=== PATIENT | female | born 1955 | race African-American/Black ===

== ENCOUNTER 2017-01-12 18:02 | Emergency (ER) | payer OTHER ==
[~2017-01-12 18:02] MED LIST: ACETAMINOPHEN PO; ADVAIR 2501 DISK W/D PO; ADVAIR 5001 DISK W/D PO; ALBUTEROL MININEB NEB; ALBUTEROL17 GM INH; AZITHROMYCIN250 MG PO; BENZONATATE PO; BP MED; CLEOCIN HCL300 M1 PO; CLEOCIN PO; COLACE PO; FLEXERIL10 MG PO; FLONASE16 GM; HCTZ PO; HYCODAN60 ML 5MG/ PO; IBUPROFEN800 MG PO; KETOPROFEN PO; LORTAB 5/500 TA1 TA1 PO; LORTAB 5/500 TA1 TA2 PO; MEDROL DOSEPAK4 MG PO; MEDROL PO; MORGIDOX100 MG PO; NAPROSYN500 MG PO; PLENDIL PO; PREDNISONE PO; PREDNISONE10 MG PO; ROBITUSSIN A-C S5 ML PO; SINGULAIR PO; SPIRIVA18 MCG INH; TOPROL XL PO; TUSSIONEX PENN473 ML PO; VICODIN 5/500 T1 TAB PO; ZITHROMAX PO; [UNRECOGNIZED DRUG - OTHER]
== END 2017-01-12 18:08 | disposition home or self-care (01) ==
LOC: CFTX 18:02
DX: J06.9 Acute upper respiratory infection, unspecified (principal); J45.909 Unspecified asthma, uncomplicated; Z90.710 Acquired absence of both cervix and uterus
CPT/HCPCS: 99282